=== PATIENT | female | born 1940 | race Caucasian/White ===

== ENCOUNTER 2016-07-10 20:29 | Emergency (ER) | payer MEDICARE, OTHER ==
[2016-07-10 21:04] VITALS: BP 196/94
--- NOTE | 2016-07-10 21:24 | UC ---
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 - History of Current Complaint Chief Complaint: UCLowerExtremity Stated Complaint: LEG INJURY Time Seen by Provider: 07/10/16 21:08 Hx Obtained From: Patient Onset/Duration: Sudden Onset, Lasting Days Severity Initially: Moderate Severity Currently: Moderate Location Of Injury: left knee Pain Intensity: 6 Pain Scale Used: 0-10 Numeric Character: Aching, Throbbing, Spasmodic Aggravating Factor(s): Movement, Weight Bearing Alleviating Factor(s): Rest Associated Signs And Symptoms: Negative: Swelling, Redness, Bruising, Fever, Weakness, Numbness, Tingling Able to Bear Weight: Yes - Risk Factors Septic Arthritis Risk Factor: Negative Gout Risk Factor: Negative - Allergies/Home Medications Allergies/Adverse Reactions: Allergies Allergy/AdvReac Type Severity Reaction Status Date / Time Glucosamine Allergy Facial Verified 07/10/16 20:50 Redness/Flushing Home Medications: Home Medications Aspirin [Aspirin 81 MG TAB] 07/10/16 [History Confirmed 07/10/16] Levothyroxine Sodium [Synthroid] 07/10/16 [History] Lisinopril [Zestril 10 MG-] 10 mg PO DAILY 07/10/16 [History Confirmed 07/10/16] PMH/Surg Hx/FS Hx/Imm Hx Endocrine History Of: Reports: Thyroid Disease Cardiovascular History Of: Reports: Cardiac Disorders, Hypertension - Surgical History Surgical History: Yes Surgery Procedure, Year, and Place: tubal ligation - Family History Known Family History: Positive: Hypertension - Social History Alcohol Use: Occasionally Substance Use Type: None Smoking Status (MU): Never Smoked Tobacco - Immunization History Most Recent Tetanus Shot: unknown Review of Systems Constitutional: Negative Skin: Negative Eyes: Negative ENT: Negative Respiratory: Negative Cardiovascular: Negative Gastrointestinal: Negative Genitourinary: Negative Motor: Negative Neurovascular: Negative Musculoskeletal: Arthralgia Neurological: Negative Psychological: Negative All Other Systems Reviewed And Are Negative: Yes Physical Exam Triage Information Reviewed: Yes Appearance: Well-Appearing, No Pain Distress, Well-Nourished Vital Signs: Initial Vital Signs Temp 98.5 F 07/10/16 20:53 Pulse 76 07/10/16 20:53 Resp 16 07/10/16 20:53 BP 196/94 07/10/16 20:53 Pulse Ox 96 07/10/16 20:53 Vital Signs Reviewed: Yes Eyes: Positive: Conjunctiva Clear ENT: Negative: Hearing grossly normal, Nasal congestion, Nasal drainage, Tonsillar swelling, Tonsillar exudate, Trismus, Muffled/hoarse voice Dental: Negative: Dental Fracture @ Neck: Positive: Supple, Nontender Respiratory: Positive: Lungs clear, Normal breath sounds, No respiratory distress, No accessory muscle use Cardiovascular: Positive: RRR, No Murmur Musculoskeletal Exam: Other - see image Neurological: Positive: Alert Psychological Exam: Normal Skin Exam: Normal Knee Pain Course/Dx - Course Course Of Treatment: XR severe DJD - Differential Dx/Diagnosis Provider Diagnoses: left knee pain. severe DJD Discharge - Discharge Plan Condition: Stable Disposition: HOME Prescriptions: Naproxen [Naproxen 500 MG TABS] 500 mg PO BID PRN #14 tab PRN Reason: Pain Patient Education Materials: Osteoarthritis (ED), Meniscus Tear (ED) Referrals: No Primary Care Phys,NOPCP [Primary Care Provider] - Alden Greer MD [Medical Doctor] - Additional Instructions: rest elevate ice Images Front/Back of Body, Lg (Lorain): 1 - pain medially 2 - pain laterally as well, antalgic gait
[2016-07-10] MEDS ORDERED: Naproxen TAB* 250 MG PO ONE (22:04)
--- NOTE | 2016-07-10 22:11 | RAD ---
Indication: LEFT knee pain for one week following twisting injury. Pain lateral and posterior. Comparison: None. Technique: LEFT knee: AP, tunnel, lateral, sunrise views. Report: Minimal suprapatellar joint effusion. Severe osteophytosis and joint space narrowing most marked at the medial joint compartment. Advanced flattening of the femoral-tibial articular surfaces and subchondral sclerosis and cystic change. Bone density appears decreased throughout. Negative for fracture. Unremarkable soft tissue contours. IMPRESSION: Negative for fracture. Kellgren and Woody grade 4 osteoarthritis.
== END 2016-07-10 22:25 | disposition home or self-care (01) ==
LOC: UCEAST 20:29
DX: M17.12 Unilateral primary osteoarthritis, left knee (principal); E07.9 Disorder of thyroid, unspecified; Z79.82 Long term (current) use of aspirin
CPT/HCPCS: 99202; A9270-GY; G0463